=== PATIENT | female | born 1950 | race Two or more races ===

== ENCOUNTER 2024-08-11 15:05 | Emergency (ER) | payer BC ==
[~2024-08-11] VITALS: Ht 68.6 cm; Wt 63.5 kg
[2024-08-11] MEDS ORDERED: ONDANSETRON ODT 4 MG TAB.RAPDIS ONE (20:01)
[2024-08-11] MEDS ORDERED: LORAZEPAM 0.5 MG TABLET ONE (20:02)
[2024-08-11] MEDS ORDERED: CYCLOBENZAPRINE HCL 10 MG TABLET ONE (20:02)
[2024-08-11] MEDS ORDERED: HYDROMORPHONE 1 MG/1 ML DISP.SYRIN ONE (20:02)
[2024-08-11] MEDS: HYDROMORPHONE 1 MG/1 ML DISP.SYRIN IM ONE (20:12)
[2024-08-11] MEDS: CYCLOBENZAPRINE HCL 10 MG TABLET PO ONE (20:12)
[2024-08-11] MEDS: ONDANSETRON ODT 4 MG TAB.RAPDIS SL ONE (20:12)
[2024-08-11] MEDS: LORAZEPAM 0.5 MG TABLET PO ONE (20:12)
[2024-08-11] MEDS ORDERED: CYCL10TA9 PO (20:57)
[2024-08-11] MEDS ORDERED: HYDR-3980 PO (20:57)
[2024-08-11] MEDS ORDERED: ONDA4TAB11 PO (20:57)
[2024-08-11 21:25] VITALS: BP 100/60; TEMP 98; O2SAT 99
== END 2024-08-11 21:25 | disposition home or self-care (01) ==
LOC: ER 15:05
DX: M54.42 Lumbago with sciatica, left side (principal); I50.9 Heart failure, unspecified; Z95.2 Presence of prosthetic heart valve; Z79.899 Other long term (current) drug therapy
CPT/HCPCS: 99284; 96372; J1171; A4606; A4663; Q0162